=== PATIENT | male | born 1965 | race Caucasian/White ===

== ENCOUNTER 2025-05-14 01:09 | Day surgery (SDC) | payer BC, SELFPAY ==
--- NOTE | 2025-05-05 07:12 | P.HP_ITS ---
History of Present Illness History of Present Illness Consent: Risks, benefits, and alternatives have been discussed and questions answered. Patient agrees to proceed with procedure. Chief complaint: elevated psa Narrative: Frandy Heck is a 59 year old male has been extremely noncompliant with follow- up in his PSA is now up to 9.4. ?He says he recently passed a ureteral stone around the time PSA was drawn. ?PSA: 8.45 / still high. mpMRI prostate: Volume: 27gm ?PI-RADS 2 Recommend standard 12-core biopsy Pt. requests prostate u/s and biopsy under sedation in OR Review of Systems Review of Systems: All systems reviewed & are unremarkable except as noted in HPI and below Meds Home Medications and Allergies Allergies Allergy/AdvReac Type Severity Reaction Status Date / Time NKA Allergy Unknown Uncoded 05/12/03 13:07 NO KNOWN DRUG ALLERGIES Allergy Y Uncoded 05/12/03 14:05 (Class Allergy) Exam Const: General: no acute distress Resp: Effort & Inspection: normal respiratory effort GI: Inspection: non-distended GI Palp: No abdominal tenderness and No Guarding due to palpation present (GI) Auscultation: normal bowel sounds Assessment and Plan Assessment and plan (1) Elevated PSA: Code(s): R97.20 - Elevated prostate specific antigen [PSA] Status: Acute Assessment and Plan: * Prostate ultrasound and ultrasound guided biopsy
[2025-05-12 10:02] VITALS: BMI 25.1
--- NOTE | 2025-05-12 10:12 | PC.NURSE ---
Report to the Outpatient Waiting Room, entrance under the green pavilion located off [facility], at time _0700_ on date _[id number]_. Planned Procedure Time: _0900_.? Time changes happen often and if your time is changed the preop area will call you the afternoon before. - You and your visitor will be asked to self-screen and do not enter if you have any COVID symptoms. Please call surgeon if you need to reschedule. - A mask is optional within the hospital at this time. Patients may have clear liquids (water, carbonated beverages, clear teas, apple juice) until 3 hours prior to surgery with a maximum of 20 ounces. - No food from midnight until time of surgery and no smoking, or chewing tobacco (or any form of nicotine). No chewing gum, candy or mints. Take only the following medications with a SIP of water on the morning of surgery: __None____ DO NOT STOP ANY OF YOUR OTHER PRESCRIPTION MEDICATIONS PRIOR TO SURGERY EXCEPT THE FOLLOWING Hold all vitamins and supplements for 3 days per anesthesiologist. Stop now. Medications to discontinue per physician ____Aspirin per Dr Gomez office instructions.____ Date to take last jkff__[id number]__ Please no make-up, nail angolan, hairspray, perfume, deodorant, or body powder the day of surgery.? No jewelry (including any body piercings) or valuables the day of surgery, leave them at home.? Please take a shower or bath the night before, or the morning of, surgery with an antibacterial soap.? Wear comfortable, loose fitting clothing.? - Jewelry must be removed prior to entering the operating room.? Rings and piercings that are not removed may be cut off. - The hospital will not accept responsibility for valuables.? - Please leave all valuables, including medications, at home the day of surgery. If you are going home after surgery, a licensed bulk delivery driver must drive you home.? - NO public transportation without another adult if you receive anesthesia. - We recommend that an adult stay with you for 24 hours following discharge. - We also recommend that you do not drive, make important decision, drink alcoholic beverages, or take any drugs that were not prescribed by your health care provider for at least 24 hours after your discharge time. Follow any additional instructions given to you from your surgeon. Telephone instructions given to __Frandy__and asked if any additional questions and then verbalized understanding. Patient advised to call surgeon office or pre surgery nurse liaison [phone] if any additional questions.
--- NOTE | 2025-05-14 06:15 | WPDHPUPDATE1 ---
History and Physical Update Update Date/Time: 05/14/25 06:15 History and Physical has been reviewed, including an updated exam of the patient. There are NO changes in the patient's condition. Risks, benefits, and alternatives have been discussed and questions answered. Patient agrees to proceed with procedure.
[2025-05-14 07:08] VITALS: BP 127/76; PULSE 77; RESP 18; TEMP 36.7; O2SAT 100
[2025-05-14 07:10] VITALS: BMI 25.7
--- NOTE | 2025-05-14 07:26 | WPDANESEPPF ---
Anes - Initial Pre Proc Eval Procedure: Operation Date: 05/14/25 09:00 Proposed Procedures p Transrectal Ultrasound Prostate Biopsy - Richard Gomez MD Date/Time: 05/14/25 07:26 Surgeon: Richard Gomez MD Pre Op Diagnosis: elevated psa Patient Data Age: 59 Gender: M Height: 1.7 m Weight: 72.7 kg Allergies Allergy/AdvReac Type Severity Reaction Status Date / Time No Known Allergies Allergy Verified 05/14/25 08:02 Home Medications ?Medication ?Instructions ?Recorded ?Confirmed ?Type aspirin 81 mg tablet 81 mg PO DAILY 05/12/25 05/12/25 History atorvastatin 20 mg tablet 20 mg PO HS 05/12/25 05/14/25 History cholecalciferol (vitamin D3) 125 125 mcg PO DAILY 05/12/25 05/14/25 History mcg (5,000 unit) tablet (Vitamin D3) cyanocobalamin (vitamin B-12) 50 50 mcg PO DAILY 05/12/25 05/14/25 History mcg lozenges (Vitamin B-12) multivitamin (Daily Multi-Vitamin 1 tablet PO DAILY 05/12/25 05/14/25 History tablet) Patient hx anesthesia problems: none Family hx anesthesia problems: none Results Review: All pre-operative results and documents have been reviewed as part of the pre-operative evaluation. [facility] Past Medical History Medical History (Updated 05/14/25 @ 07:27 by Cameron Baptiste DO) BPH (benign prostatic hyperplasia) Hyperlipidemia Social History Social History Smoking packs per day: 1 Smoking cigarettes per day: 20.0 Years smoked: 5 Smoking pack-years: 5.00 Smoking status: Former smoker Tobacco type: cigarettes Smoking end date: 05/12/00 Alcohol intake: former Living arrangements: with family Spiritual care concerns: No Anes - Eval Final PreProcedure Day of Procedure 05/14/25 07:26 Patient weight: overweight Heart: regular rate and rhythm Lungs: clear to auscultation Airway: Mallampati scale class II Neurological: alert and oriented Last oral intake: >/= 8 hours ASA classification: II Emergent: no Anesthetic plan: proceed Anesthesia type and monitoring: general GIVS and standard monitoring Results Review: All pre-operative results and documents have been reviewed as part of the pre-operative evaluation. Informed Consent: The patient's anesthetic plan and its attendant risks and benefits were discussed with the patient/family/POA. Questions were solicited and answers provided to the satisfaction of the patient/family/POA.
[2025-05-14] MEDS: LACTATED RINGERS 1,000 ML 30 ML IV CONT (07:35)
--- NOTE | 2025-05-14 08:31 | S_PTH ---
PATIENT: Frandy Heck LOC: [facility] U#:[id number] AGE/SX: 59/M ROOM: RE05/14/[address]: Richard Gomez MD : 1965 BED: DIS: 05/14/2025 SPEC #: [id number] RECD: 05/14/25 09:52 STATUS: SUSIE RE #: [id number] ARLETTE: 05/14/25 08:[address]: Richard Gomez DEPT: [facility] Surgical RECD BY: Selina Rivera ENTERED: 05/14/25 09:55 SP TYPE: Surgical OTHR DR: Reid SommerMD Tissues: A - Prostate Bx B - Prostate Bx C - Prostate Bx D - Prostate Bx E - Prostate Bx F - Prostate Bx G - Prostate Bx H - Prostate Bx I - Prostate Bx J - Prostate Bx K - Prostate Bx L - Prostate Bx Procedures: Unstained Slides Hematoxylin and Eosin Stain Prostate Biopsy
--- NOTE | 2025-05-14 08:59 | W.PM.PROC2 ---
Procedure Note - Detailed Date of Procedure 05/14/25 Pre-op Diagnosis Elevated psa Post-op Diagnosis Same Procedure Performed Transrectal ultrasound prostate, ultrasound-guided biopsy prostate Surgeon Richard Gomez MD Anesthesia General Description of Procedure The patient was place in a left lateral position after administration of systemic sedation by the anesthesia department. Transrectal ultrasound of the prostate is undertaken at 6.0Hz. The prostate capsule is intact and the tissue has a normal echo texture. There is a small median lobe and minimal PVR in the bladder. The seminal vesicles have a normal appearance ultrasonically. The prostate measured 19.1gm in size. Using ultrasound guidance a total of 12 biopsy cores are obtained. The ultrasound probe was removed and the patient was taken to the recovery room in good condition. Pathology Yes Condition Stable Disposition PACU
[2025-05-14 09:00] VITALS: BP 100/48; PULSE 64; RESP 20; O2SAT 98
[2025-05-14 09:30] VITALS: BP 132/66; PULSE 64; RESP 20
[2025-05-14 09:55] VITALS: BP 127/70; PULSE 61; RESP 20
== END 2025-05-14 10:01 | disposition home or self-care (01) ==
PROVIDERS: PCP Emergency Medicine; Visit Provider Urology
PROC: (CPT 55700; principal; 2025-05-14 09:00)
DX: C61 Malignant neoplasm of prostate (principal); Z87.891 Personal history of nicotine dependence
CPT/HCPCS: 55700; 76872; G0416; J0696; J2003; J2704; J3010; J7120

== ENCOUNTER 2025-05-29 13:22 | Outpatient (CLI) | payer BC, SELFPAY ==
--- NOTE | ~2025-05-29 | PE_ITS ---
EXAMINATION: PET_PETPSMAST_PT DATE: 05/29/2025 15:39 INDICATION: Prostate cancer TECHNIQUE: 5.782 mCi of Illucix Ga-68([id number]) was administered i.v. Low dose computed nina graphy (CT) images were acquired from the base of the brain to the base of the brain to the proximal thighs for attenuation correction and anatomic localization. Positron emission tomography (PET) image s were acquired in the same distribution beginning 77 minutes after injection. Images including fused PET/CT images were reconstructed in axial, coronal, and sagittal planes. Automated exposure control technique was employed. The dose-length product was 901.48mGy-cm. COMPARISON: None FINDINGS: Head/neck: Typical pattern of symmetric physiologic increased activity in the lacrimal, parotid and submandibula r glands as well as along the mucosa of the nasal and oral cavities, pharynx and hypopharynx. Minimal likely physiologic neural ganglia uptake at a few of the lower and upper thoracic neural foramina. N o pathologically enlarged cervical lymphadenopathy or suspicious foci of increased uptake in the visu alized head or neck. Chest: Calcified nodules in the left upper lobe and lingula along with calcified left hilar and mediastinal lymph nodes consistent with old granulomatous disease. No other suspicious pulmonary nodules, pneumon ia, pulmonary edema or pleural effusion. Heart size is normal. No pericardial effusion. Thoracic aort a is normal in caliber. No pathologically enlarged or PSMA avid thoracic lymphadenopathy. Abdomen/pelvis/proximal thighs: Physiologic renal accumulation and excretion of activity in the kidneys, bladder and along portions o f ureters. There are 3 foci of increased uptake in the prostate, one in the right posterior gland wit h maximal SUV of 8.3, 1 along the posterior midline with maximal SUV of 7.5 and a third small focus o f minimal uptake with maximal SUV of 3.2 at the left posterior gland consistent with reported history of primary prostate cancer. Normal degree and slightly heterogenous pattern of increased uptake thro ughout the liver and spleen without radiologic correlate or dominant PSMA avid lesion. Several scatte red splenic calcific lesions consistent with old granulomatous disease. The gallbladder, pancreas and left adrenal gland are normal. 2.6 cm right adrenal mass with relatively low density with maximal NGUYEN V of 14-20 suggestive but not diagnostic of adenoma. Moderate uptake scattered throughout the bowels with typical duodenal and proximal jejunal predominance and without radiologic correlate, also likely physiologic. Normal appendix. Small fat-containing umbilical hernia. No other abnormal foci of incre ased uptake or pathologically enlarged lymphadenopathy in the abdomen, pelvis or proximal thighs. Musculoskeletal: Severe lower lumbar spondylosis. Small region of soft tissue uptake likely due to extravasation at th e site of injection at the right antecubital fossa. No suspicious lytic, blastic or abnormally PSMA a vid bone lesions. IMPRESSION: 1. 3 foci of increased uptake in the prostate consistent with primary prostate cancer. No evident met astatic prostate cancer. 2. 2.6 similar right adrenal mass without abnormal uptake most likely an abnormal although differenti al would include less likely benign prostatic metastatic disease. Correlate with with clinical histor y and with any prior outside imaging is available. Otherwise would recommend further evaluation with adrenal protocol pre and postcontrast CT. Reviewed, dictated and finalized at location A. IMPRESSION: 1. 3 foci of increased uptake in the prostate consistent with primary prostate cancer. No evident metastatic prostate cancer. 2. 2.6 similar right adrenal mass without abnormal uptake most likely an abnorm al although differential would include less likely benign prostatic metastatic disease. Correlate with with clinical history and with any prior outside imagin g is available. Otherwise would recommend further evaluation with adrenal danny col pre and postcontrast CT.
--- OUTSIDE RECORDS SUMMARY | 2025-05-29 13:27 | XMS_ITS | Clinical Summary ---
Author Organization [facility] Address [address] [place] [id number] Care Team Providers Care Foot Press Operator Name Role Phone Reid Sommer MD Primary Care Provider [phone] Allergies No known active allergies Medications No known medications Active Problems No known active problems Resolved Problems Problem Noted Date Diagnosed Date Resolved Date Physical exam, pre-employment 08/06/2014 03/16/2025 Encounters Date Type Department Care Team Description 03/09/2025 10:20 AM CDT Office Visit [address] [place] [id number] Eli Parks DO Dysuria (X 4-5 days); Urinary Frequency 03/09/2025 Travel from Last 3 Months Social History Tobacco Use Types Packs/Day Years Used Date Smoking Tobacco: Former Cigarettes Smokeless Tobacco: Never Tobacco Cessation:Counseling Given: No Alcohol Use Standard Drinks/Week Comments Not Currently 0 (1 standard drink = 0.6 oz pur e alcohol) PHQ-2 Answer Date Recorded Patient Health Questionnaire-2 Score 2 03/09/2025 Sex and Gender Information Value Date Recorded Sex Assigned at Male 03/09/2025 10:33 AM CDT Legal Sex Male 4:55 PM CDT Gender Identity Male 03/09/2025 10:33 AM CDT Sexual Orientation Not on file Last Filed Vital Signs Vital Sign Reading Time Taken Comments Blood Pressure 130/80 03/09/2025 10:16 AM CDT Pulse 95 03/09/2025 10:16 AM CDT Temperature 37.2 C (99 F) 03/09/2025 10:16 AM CDT Respiratory Rate 12 03/09/2025 10:16 AM CDT Oxygen Saturation 97% 03/09/2025 10:16 AM CDT Inhaled Oxygen Concentration - - Weight 77.6 kg (171 lb) 03/09/2025 10:16 AM CDT Height 172.7 cm (5' 8) 03/09/2025 10:16 AM CDT Body Mass Index 26 03/09/2025 10:16 AM CDT Plan of Treatment Health Maintenance Due Date Last Done Comments Colorectal Cancer Screening Colonoscopy (10 Years) 1965 Annual Physical 1967 Hepatitis C 1982 DTaP, Tdap and Td Vaccines ( 1 - Tdap) 1983 Pneumococcal Vaccine: 50+ Ye ars (1 of 1 - PCV) 2014 Zoster Vaccines (1 of 2) 2014 COVID-19 Vaccine (1 - 2023-2 5 season) 2024 RSV Immunization or 60+ Years (1 - 1-dose 75+ series) 2039 PHQ-2 (Physician [place]) Completed 03/09/2025 Meningococcal B Vaccine Aged Out No l onger eligible based on patient's age to complete this topic Meningococcal Vaccine Aged Out No paul deborah eligible based on patient's age to complete this topic RSV Immunizations Under 20 Months Aged Out No longer eligible based on patient's age to complete this topic Procedures Procedure Name Priority Date/Time Associated Diagnosis Comments URINALYSIS AUTO DIP Today 03/09/2025 Frequency of urination from Last 3 Months Results * URINALYSIS AUTO DIP (03/09/2025) COLOR (U) YELLOW YELLOW -[facility] DR [address]ate201)[place] TRANSPARENCY CLEAR CLEAR -[facility] (201)[place] GLUCOSE (U) NEGATIVE NEGATIVE MG/DL -[facility] DR [address]ate201)[place] BILIRUBIN (U) NEGATIVE NEGATIVE [facility] DR Pate201)[place] KETONES MG/DL (U) NEGATIVE NEGATIVE MG/DL [facility] (201)[place] SPECIFIC GRAVITY (U) 1.015 1.001 - 1.035 [facility] (201)[place] BLOOD (U) NEGATIVE NEGATIVE -[facility] ARE DR Pate201)[place] U PH 7.0 5.0 - 9.0 [facility] DR (201), [place] PROTEIN (U) NEGATIVE NEGATIVE mg/dL [facility] ([facility]), [place] UROBILINOGEN 0.2 0.2 - 1.0 EU/dL = mg/dL [facility] (201), [place] NITRITES NEGATIVE NEGATIVE MG/DL [facility] (201), [place] LEUKOCYTES (U) NEGATIVE NEGATIVE [facility] (201), [place] URINE SPECIMEN OBTAINED BY CLEAN CATCH PROCEDURE / Unknown 03/09/2025 us Eli Parks DO URINE ORDERABLES Final Result [facility] (201), [place] [address] [place] [address] [place] [address], from Last 3 Months Insurance [facility] Care Teams Foot Press Operator Relationship Specialty Start Date End Date Reid Sommer MD [address] [place] [address] PCP - General FAMILY PRACTICE 03/09/25
== END 2025-05-29 13:23 | disposition home or self-care (01) ==
LOC: ANHIMG 13:25
PROVIDERS: PCP Emergency Medicine; Visit Provider Urology
DX: R93.89 Abnormal findings on diagnostic imaging of other specified body structures (principal); C61 Malignant neoplasm of prostate
CPT/HCPCS: 78815; A9596